=== PATIENT | female | born 1955 | race Caucasian/White ===

== ENCOUNTER → 2020-09-05 | Outpatient (CLI) | payer MEDICARE, BC ==
--- NOTE | 2020-09-09 12:04 | RAD ---
DATE: 09/05/2020 8:23 AM EXAM: MAMMO KELLY SCREENING BILATERAL HISTORY: Screening COMPARISON: 08/21/2019 Bilateral CC and MLO views of the breasts were performed with and without implant displacement. Bilateral breast tomosynthesis was performed in implant displaced CC and MLO projections. This study was interpreted with the benefit of Computerized Aided Detection (CAD). FINDINGS: Breast Density: FATTY The Breast Parenchyma is primarily fatty replaced. Breast parenchyma level density A. Bilateral subpectoral implants are redemonstrated. Negative left mammogram. Right mammogram shows a 6 mm focal asymmetry best seen on the implant displaced CC tomographic image 38 of 59 on the MLO implant displaced tomographic image 35 of 51. This is at the approximate 12:00 position 3 cm from the nipple. It needs additional imaging with spot compression views, full-field lateral view and possible right breast ultrasound. IMPRESSION: Right breast focal asymmetry, findings for which additional imaging is advised. BI-RADS CATEGORY: 0 INCOMPLETE: NEEDS ADDITIONAL IMAGING EVALUATION AND/OR PRIOR MAMMOGRAMS FOR COMPARISON. RECOMMENDED FOLLOW-UP: ADD ADDITIONAL IMAGING The patient will be contacted to return for additional imaging and a supplemental report will follow. PQRS compliance statement: Patient information was entered into a reminder system with a target due date for the next mammogram. Mammography is a sensitive method for finding small breast cancers, but it does not detect them all and is not a substitute for careful clinical examination. A negative mammogram does not negate a clinically suspicious finding and should not result in delay in biopsying a clinically suspicious abnormality. "Our facility is accredited by the [employer] Mammography [employer]."
== END ==
LOC: MAMMO 08:07
PROVIDERS: ATTEND Family Medicine
DX: Z12.31 Encounter for screening mammogram for malignant neoplasm of breast (principal); N64.89 Other specified disorders of breast
CPT/HCPCS: 77063; 77067

== ENCOUNTER → 2020-09-17 | Outpatient (CLI) | payer MEDICARE, BC ==
--- NOTE | 2020-09-18 09:05 | RAD ---
Examination: 1. Right digital diagnostic mammogram. 2. Targeted right breast ultrasound. INDICATION: 65-year-old woman recalled from screening for right breast focal asymmetry in the 12:00 p osition 3 cm from the nipple. COMPARISON: Screening mammograms of 08/21/2019 and 09/05/2020. TECHNIQUE: Additional mammographic views of the right breast including a full field implant displaced ML view and implant displaced MLO and CC spot compression views were obtained with 2-D technique. Th roderick were reviewed in the full field case with computer-aided detection. Targeted ultrasound of the ri ght breast was subsequently pursued. FINDINGS: The questioned asymmetry persisted on additional mammographic views as an isodense mass with obscured margins at the 12:00 position 3 cm from the nipple measuring approximately 6 mm. Targeted ultrasound of the right breast in the area of mammographic interest reveals a 4 mm irregular hypoechoic antiparallel mass with irregular margins at the 12:00 position 3 cm from the nipple that likely correlates with the mammographic finding recalled from screening. This is suspicious. A subpec shadi breast implant is incidentally noted. IMPRESSION: Suspicious 4 mm mass at the right 12:00 position 3 cm from the nipple. BI-RADS Category 4 Findings suspicious for malignancy. Recommend ultrasound-guided right breast core needle biopsy. Discussed with Dr. Johnston by telephone at 9:03am on 09/18/20. Electronically signed by: Tyron Thomas MD (09/18/2020 9:03 AM) [id number]
== END ==
LOC: MAMMO 09:37
PROVIDERS: ATTEND Family Medicine
DX: R92.2 Inconclusive mammogram (principal)
CPT/HCPCS: 76641; 77065

== ENCOUNTER → 2020-12-18 | Outpatient (CLI) | payer MEDICARE, BC ==
--- NOTE | 2020-12-18 12:47 | RAD ---
Exam performed: 2 views of the chest. Indication: Reason: New dx. breast cancer. Screening prior to treatment. / Spl. Instructions: Hx. br east implant. / History: Date of Service: 12/18/2020 9:55 AM. Comparison : None available Findings: PA and lateral radiographs of the chest reveal a normal cardiomediastinal contour. The lungs are he r. No pleural fluid is seen. The visualized osseous structures are unremarkable. Impression: No acute cardiopulmonary process seen. Electronically signed by: Abby Johns MD (12/18/2020 12:45 PM) [id number]
== END ==
LOC: DXRAD 09:46
PROVIDERS: ATTEND Radiology Radiation Oncology
DX: D05.11 Intraductal carcinoma in situ of right breast (principal)
CPT/HCPCS: 71046